=== PATIENT | male | born 2000 | race Two or more races ===

== ENCOUNTER 2020-11-20 21:56 | Emergency (ER) | payer OTHER ==
[~2020-11-20] VITALS: Ht 177.8 cm; Wt 74.8 kg
[2020-11-20 22:02] VITALS: BP 136/86
== END 2020-11-20 22:31 | disposition home or self-care (01) ==
LOC: ER 21:59
DX: L76.22 Postprocedural hemorrhage of skin and subcutaneous tissue following other procedure (principal); F84.0 Autistic disorder

== ENCOUNTER 2021-03-02 19:21 | Emergency (ER) | payer OTHER ==
[~2021-03-02] VITALS: Ht 177.8 cm; Wt 74.8 kg
[2021-03-02 19:31] VITALS: BP 143/95
== END 2021-03-02 20:07 | disposition home or self-care (01) ==
LOC: ER 19:21
DX: F84.0 Autistic disorder (principal)